=== PATIENT | female | born 2000 | race Caucasian/White ===

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

== ENCOUNTER 2025-01-27 23:13 | Emergency (ER) | payer OTHER ==
--- OUTSIDE RECORDS SUMMARY | 2025-01-27 23:17 | XMS REPORT | Continuity of Care Document ---
Author Name Unknown Address [address] [facility] [place] [address] [facility] Address [address] [facility] [place] [address] Care Team Providers Care Senior Construction Manager Name Role Phone SOFIA JUSTIN Primary Care Physician Unavail able Beth Whaley Attending Clinician UnavailRONNIE Webb Attending Clinician Unavailable LISTER_MELISSA Attending Clinician Unavailable Ruth Pearson Attending Clinician Unavailable Lab, Adc Fam Pob I Attending Clinician UnavailCelia Guevara MD Attending Clinician CELIA SEAMAN Attending Clinician Unavailable [facility] Admitting Clinician Unavaila ble MARK_CLIFTON Admitting Clinician Unavailable Payers Payer Name Policy Type Policy Number Effective Date Expirati on Date Source [employer] PPO [id number] 2023 00:00:00 Allergies, Adverse Reactions, Alerts Allergy Name Allergy Type Status Severity Reaction(s) Onset Date Inactive Date Treating Clinician Comments Source No Known Allergie s DA Active U 05-09 00:00: 00 [facility] NO KNOWN ALLERGIE S Drug Class Active [facility] Social History Social Habit Start Date Stop Date Quantity Comments Source Exposure to SARS-CoV-2 (event) Yes [facility] Sex Assigned At 2000 00:00:00 2000 00:00:00 [facility] Smoking Status Start Date Stop Date Source Unknown if [facility] Encounters Start Date/Time End Date/Time Encounter Type Admission Type Attending Clinicians Care Facility Care Department Encounter ID Source 2025-03-17 11:30:00 2025-03-17 11:30:00 Outpatient Beth Whaley [facility] [id number] [facility] 2024-06-12 09:00:00 2024-06-12 09:00:00 Outpatient RONNIE CHRISTOPHER [facility] [id number] [facility] 2022-05-23 00:00:00 2022-05-23 00:00:00 Outpatient [facility] [id number] [place] [facility] 2022-05-09 12:03:00 2022-05-09 12:54:00 Emergency EM Madain, Safi [facility] AERS [id number] [facility] 2022-05-09 12:03:00 2022-05-09 12:03:00 Emergency EM Madain, Safi [facility] [id number] [facility] 2021-05-14 15:49:20 2021-05-14 16:09:20 Laboratory Only Lab, Adc [facility] Malcom Celia Flores [facility] [id number] [facility] 2021-05-14 15:40:00 2021-05-14 15:40:00 Outpatient CELIA PRITCHETT [facility] [id number] [facility] Results Test Description Test Time Test Comments Results Result Co mments Source Urine Test Result: NEGATIVEAre internal controls (presence of a control line & clear background) OK? YesLot # of HCG Test Kit: [id number] Date of Kit: 07/27/23Test Performed by: CSMITHTest Perfomed on: 05/09/22 Notes Date/Time Note Provider Source 2022-05-09 12:16:00 [facility] ([facility] EMERGENCY PROVIDER REPORT REPORT#:[id number] REPORT STATUS: Signed DATE:05/09/22 TIME: 1216 PATIENT: OMARI ALVAREZ UNIT #: [id number] ROOM/BED: AGE: 21 SEX: F PCP PHYS: URGENT CARE CENTER SERVICE AUTHOR: Ruth Pearson DO * ALL edits or amendments must be made on the electronic/computer document * HPI-General Illness Free Text HPI Notes Free Text HPI Notes Patient is a 21-year-old female, she has a past medical history of bipolar disorder with greater manic features, history of cocaine dependence though patient states that she has not done any cocaine recently, she presents emergency department with dizziness that occurred while she was at work today. 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 She did not pass out. No chest pain, shortness of breath, no abdominal pain, no vomiting, no diarrhea, no fever. No other complaints. Patient states that she feels much better now that she is out of the heat. Patient states that she did start a medication called Vraylar approximately 1 week ago, it is an antipsychotic, she takes it for her bipolar disorder. She states that dizziness is a potential side effect of Vraylar. She did call her psychiatrist and is waiting for a call back. General Initial Greet Date/Time 05/09/22 1203 Presentation Chief Complaint __ Review of Systems ROS Statements All systems rev neg except as marked. Review of Systems Cardiovascular Denies: Chest pain, Dyspnea on exertion, Edema, Orthopnea, Palpitations, Syncope. GI Denies: Abdominal pain. Female Denies: Pelvic pain, Vaginal bleeding - abnl, Vaginal discharge. Neurologic Denies: Change LOC, Confusion, Focal weakness, Problem walking, Seizure. Past Medical History - Adult Stated Complaint DIZZINESS Allergies Coded Allergies: No Known Allergies (05/09/22) Review of Nursing Notes Rev avail, and agree Additional Medical History Bipolar disorder Smoking status for patients 13 years old or older: Current some day smoker Physical Exam Vital Signs Vital Signs First Documented: Result Date Time Pulse Ox 100 05/09 1205 B/P 130/80 05/09 1205 B/P Mean 96 05/09 1205 O2 Delivery Room air 05/09 1205 Temp 36.4 05/09 1205 Pulse 85 05/09 1205 Resp 16 05/09 1205 Last Documented: Result Date Time Pulse Ox 100 05/09 1205 B/P 130/80 05/09 1205 B/P Mean 96 05/09 1205 O2 Delivery Room air 05/09 1205 Temp 36.4 05/09 1205 Pulse 85 05/09 1205 Resp 16 05/09 1205 Review of Vital Signs Reviewed Free Text PE Notes Free Text PE Notes General: Well-nourished, well-developed, cooperative Eyes: Normal conjunctiva, PERRL Ear/nose/throat: Atraumatic, airway patent Respiratory: No respiratory distress, clear auscultation bilaterally Cardiovascular: Heart rate normal, regular rate and rhythm, patient is not orthostatic. I personally took the patient's supine/sitting/standing vital signs. Musculoskeletal: Head: Atraumatic, normocephalic Neck: Atraumatic, supple Upper extremities: Atraumatic, no swelling Lower extremities: Atraumatic, no swelling Skin: Normal color, no rash, warm, dry, intact Neurologic: Oriented x3, awake, alert, speech normal, no obvious motor deficits, memory normal, no dysmetria, no dysdiadochokinesia, patient ambulates independently with a steady gait Psychiatric: Affect normal, mood normal Interpretation Diagnostics Lab Results Interpretation Lab Statement Laboratory studies reviewed and considered in the medical decision-making. Urine hCG is negative ECG #1 Interpretation Text/Dict Note Time performed: 1219 Time read: 1219 Heart Rate: 80 Normal sinus rhythm with sinus arrhythmia, normal QRS, normal axis, normal intervals, no STEMI, no acute ischemic changes Patient Discharge Departure Vital Signs/Condition Vital Signs First Documented: Result Date Time Pulse Ox 100 05/09 1205 B/P 130/80 05/09 1205 B/P Mean 96 05/09 1205 O2 Delivery Room air 05/09 1205 Temp 36.4 05/09 1205 Pulse 85 05/09 1205 Resp 16 05/09 1205 Last Documented: Result Date Time Pulse Ox 100 05/09 1205 B/P 130/80 05/09 1205 B/P Mean 96 05/09 1205 O2 Delivery Room air 05/09 1205 Temp 36.4 05/09 1205 Pulse 85 05/09 1205 Resp 16 05/09 1205 All vital signs available at the time of this entry have been reviewed. Condition Stable Clinical Impression Clinical Impression Primary Impression: Heat exhaustion Secondary Impressions: Dizziness Disposition Decision Discharge )( Discharged to Home Yes )( Time 1239 )( Date 05/09/22 Discharge/Care Plan Counseled Regarding Diagnosis, Need for follow-up, When to return to ED Patient Instructions ED Heat Exhaustion Additional Instructions Please follow-up with your psychiatrist regarding Vraylar at 1239 RPT #:[id number] END OF REPORT [facility]
[2025-01-28 00:28] LABS: Specific Gravity 1.016 (1.005-1.030)
[2025-01-28 00:37] LABS: Specific Gravity 1.016 (1.005-1.030); Sqamous Epithelial <5 /HPF (None Seen); Urine Bacteria <20 /HPF (<20); Urine Bilirubin NEGATIVE (Negative); Urine Blood 1+ (Negative); Urine Clarity Extremely Turbid (Clear); Urine Color Dark-Brown (Yellow); Urine Culture Reflex Order REFLEXED; Urine Glucose NEGATIVE (Negative); Urine Ketones NEGATIVE (Negative); Urine Microscopic Reflex YN ORDER UMIC; Urine Mucus Slight /HPF (None Seen); Urine Nitrite 1+ (Negative); Urine Protein TRACE (Negative); Urine Urobilinogen 1+ (Normal); Urine WBC 20-50 /HPF (<5); Urine pH 5.5 (5.0-7.0)
--- NOTE | 2025-01-28 00:48 | ER ---
Nurse's Notes [facility] Name: Ludwig Ovalle Age: 24 yrs Sex: Female : 2000 Arrival Date: 01/27/2025 Time: 23:13 Bed 20 Private MD: Diagnosis: UTI/ Urinary tract infection, site not specified;Abrasion of vagina and vulva Presentation: 01/27 23:49 Chief complaint: Patient states: vaginal discomfort pain, and bleeding. Hurts when I vc1 try to wipe after peeing. Coronavirus screen: Client denies travel out of the [place] in the last 14 days. At this time, the client does not indicate any symptoms associated with coronavirus-19. Ebola Screen: Patient negative for fever greater than or equal to 101.5 degrees Fahrenheit, and additional compatible Ebola Virus Disease symptoms Patient denies exposure to infectious person. Patient denies travel to an Ebola-affected area in the 21 days before illness onset. No symptoms or risks identified at this time. Initial Sepsis Screen: Does the patient meet any 2 criteria? No. Patient's initial sepsis screen is negative. Does the patient have a suspected source of infection? No. Patient's initial sepsis screen is negative. Risk Assessment: Do you want to hurt yourself or someone else? Patient reports no desire to harm self or others. Note started 1.5 weeks ago. Onset of symptoms is unknown. 23:49 Method Of Arrival: Ambulatory vc1 23:49 Acuity: HALLIE 4 vc1 23:54 Note just treated for Chylmydia. vc1 Triage Assessment: 23:55 General: Appears in no apparent distress. uncomfortable, obese, well groomed, well vc1 developed, Behavior is calm, cooperative, appropriate for age. Pain: Complains of pain in meatus Pain does not radiate. EENT: No deficits noted. No signs and/or symptoms were reported regarding the EENT system. Neuro: Level of Consciousness is awake, alert, obeys commands, Oriented to person, place, time, situation, Appropriate for age. Cardiovascular: Capillary refill < 3 seconds Patient's skin is warm and dry. Respiratory: Airway is patent Respiratory effort is even, unlabored, Respiratory pattern is regular, symmetrical. GI: No deficits noted. No signs and/or symptoms were reported involving the gastrointestinal system. : Reports burning with urination, vaginal bleeding that is bright red. Derm: Skin is intact, is healthy with good turgor, Skin is dry, Skin is normal, Skin temperature is warm. Musculoskeletal: Circulation, motion, and sensation intact. Range of motion: intact in all extremities. MANAGER FORENSIC: 23:53 LMP N/A - control method, Not vc1 Historical: - Allergies: 23:50 No Known Allergies; vc1 - Home Meds: 23:50 metformin 500 mg oral tablet 2 times per day [Active]; vc1 - PMHx: 23:50 high heart rate; vc1 - PSHx: 23:50 None; vc1 - Immunization history:: Client reports receiving the 2nd dose of the Covid vaccine, Flu vaccine is not up to date. - Infectious Disease History:: Denies. - Social history:: Smoking status: Reported history of juuling and/or vaping. Screenin:53 [facility] ED Fall Risk Assessment (Adult) History of falling in the last 3 months, vc1 including since admission No falls in past 3 months (0 pts) Confusion or Disorientation No (0 pts) Intoxicated or Sedated No (0 pts) Impaired Gait No (0 pts) Mobility Assist Device Used No (0 pt) Altered Elimination No (0 pt) Score/Fall Risk Level 0 - 2 = Low Risk Oriented to surroundings, Maintained a safe environment, Educated pt \T\ family on fall prevention, incl call for assistance when getting out of bed. Abuse screen: Denies threats or abuse. Nutritional screening: No deficits noted. Tuberculosis screening: No symptoms or risk factors identified. Assessment: 01/28 00:12 General: Appears in no apparent distress. uncomfortable, Behavior is calm, cooperative, dd2 appropriate for age. Pain: Complains of pain in pelvis and meatus and groin Pain does not radiate. Pain currently is 4 out of 10 on a pain scale. Quality of pain is described as burning. Neuro: No deficits noted. Lozano Agitation-Sedation Scale (RASS): 0 - Alert and Calm Level of Consciousness is awake, alert, obeys commands, Oriented to person, place, time, situation, Appropriate for age. Cardiovascular: No deficits noted. Respiratory: No deficits noted. Airway is patent Respiratory effort is even, unlabored, Respiratory pattern is regular, symmetrical. GI: No deficits noted. No signs and/or symptoms were reported involving the gastrointestinal system. : Reports burning with urination, discharge, bloody, pain with urination. EENT: No deficits noted. No signs and/or symptoms were reported regarding the EENT system. Derm: No deficits noted. No signs and/or symptoms reported regarding the dermatologic system. Musculoskeletal: No deficits noted. No signs and/or symptoms reported regarding the musculoskeletal system. Circulation, motion, and sensation intact. Range of motion: intact in all extremities. Vital Signs: 01/27 23:49 Weight 91.63 kg; Height 5 ft. 2 in. ; Pain 4/10; vc1 23:54 BP 131 / 88; Pulse 87; Resp 16; Temp 97.1; Pulse Ox 98% ; vc1 01/28 01:04 BP 124 / 82; Pulse 81; Resp 16; Temp 97.8; Pulse Ox 99% on R/A; dd2 01/27 23:49 Body Mass Index 36.95 (91.63 kg, 157.48 cm) vc1 01/27 23:49 Pain Scale: Adult vc1 [place] Coma Score: 00:12 Eye Response: spontaneous(4). Motor Response: obeys commands(6). Verbal Response: dd2 oriented(5). Total: 15. ED Course: 01/27 23:17 Patient arrived in ED. im 23:20 Michelle Raines FNP-C is PHCP. kb 23:20 Twin Valle MD is Attending Physician. kb 23:50 Triage completed. vc1 23:53 Arm band placed on right wrist. vc1 01/28 00:12 Patient has correct armband on for positive identification. Bed in low position. Call dd2 light in reach. Side rails up X2. Client placed on continuous cardiac and pulse oximetry monitoring. NIBP monitoring applied. Door closed. Noise minimized. Warm blanket given. Pillow given. Verbal reassurance given. 00:12 No provider procedures requiring assistance completed. Patient did not have IV access dd2 during this emergency room visit. 00:54 OJ BUSCH, RN is Primary Nurse. dd2 01:04 Provided Education on: D/C EDUCATION. dd2 Administered Medications: 01:04 Drug: Macrobid PO 100 mg PO once; administer with food Route: PO; dd2 01:06 Follow up: Response: Medication administered at discharge. dd2 Medication: 00:12 VIS not applicable for this client. dd2 Outcome: 00:47 Discharge ordered by . chano 01:04 Discharged to home ambulatory, dd2 01:04 Condition: stable 01:04 Discharge instructions given to patient, Instructed on discharge instructions, follow up and referral plans. medication usage, Demonstrated understanding of instructions, follow-up care, medications, Prescriptions given X 1, 01:06 Patient left the ED. dd2 Addendum: 01/31/2025 18:39 Addendum: Culture Results: Positive urine culture. No further action required. Bacteria i w sensitive to prescribed antibiotic. Signatures: Michelle Raines, FACILITIES MAINTENANCE WORKER-C FACILITIES MAINTENANCE WORKER-Ckb Shelly Estrella, RN RN iw Amber Avila RN RN vc1 Jazmin Goldsmith DIANA, RN RN dd2
--- NOTE | 2025-01-28 00:48 | EDPHYS ---
Physician Documentation [facility] Name: Ludwig Ovalle Age: 24 yrs Sex: Female : 2000 Arrival Date: 01/27/2025 Time: 23:13 Bed 20 Private MD: ED Physician Twin Valle HPI: 01/28 00:45 This 24 yrs old Female presents to ER via Ambulatory with complaints of Vaginal kb Bleeding, Vaginal Discharge, Vaginal Pain, Urinary Problem. 00:45 Patient is a 24-year-old female who presents for pain to vaginal area and bleeding when kb she wipes that started a week and a half ago. States she was diagnosed with chlamydia and completed antibiotics for that just prior to symptom onset. Denies fever. States blood is not coming from vagina but around vaginal area. Denies vaginal discharge. Reports burning with urination.. NPS: 01/27 23:53 LMP N/A - control method, Not vc1 Historical: - Allergies: 23:50 No Known Allergies; vc1 - Home Meds: 23:50 metformin 500 mg oral tablet 2 times per day [Active]; vc1 - PMHx: 23:50 high heart rate; vc1 - PSHx: 23:50 None; vc1 - Immunization history:: Client reports receiving the 2nd dose of the Covid vaccine, Flu vaccine is not up to date. - Infectious Disease History:: Denies. - Social history:: Smoking status: Reported history of juuling and/or vaping. ROS: 01/28 00:45 Constitutional: As per HPI kb Exam: 00:45 Constitutional: This is a well developed, well nourished patient who is awake, alert, kb and in no acute distress. Head/Face: Normocephalic, atraumatic. ENT: Moist Mucous membranes Cardiovascular: Regular rate Respiratory: Respirations even and unlabored. No increased work of breathing. Talking in full sentences Abdomen/GI: Soft, non-tender. No distention Skin: Warm, dry with normal turgor. Normal color. MS/ Extremity: Pulses equal, no cyanosis. Neurovascular intact. Full, normal range of motion. Neuro: Awake and alert, GCS 15, oriented to person, place, time, and situation. 00:45 : Pelvic Exam: External exam: excoriation noted, Vital Signs: 01/27 23:49 Weight 91.63 kg; Height 5 ft. 2 in. ; Pain 4/10; vc1 23:54 BP 131 / 88; Pulse 87; Resp 16; Temp 97.1; Pulse Ox 98% ; vc1 01/28 01:04 BP 124 / 82; Pulse 81; Resp 16; Temp 97.8; Pulse Ox 99% on R/A; dd2 01/27 23:49 Body Mass Index 36.95 (91.63 kg, 157.48 cm) vc1 01/27 23:49 Pain Scale: Adult vc1 [place] Coma Score: 00:12 Eye Response: spontaneous(4). Motor Response: obeys commands(6). Verbal Response: dd2 oriented(5). Total: 15. MDM: 01/27 23:20 Medical Screening Exam initiated kb 01/28 00:45 Differential diagnosis: UTI, vaginosis. Data reviewed: vital signs, nurses notes. kb Counseling: I had a detailed discussion with the patient and/or guardian regarding the historical points, exam findings, and any diagnostic results supporting the discharge/admit diagnosis, lab results, the need for outpatient follow up, an OB/Gyne specialist, to return to the emergency department if symptoms worsen or persist or if there are any questions or concerns that arise at home. 01/28 00:06 Order name: Urinalysis w/ reflexes; Complete Time: 00:40 vc1 01/28 00:07 Order name: Test, Urine; Complete Time: 00:29 kb 01/28 00:42 Order name: Urine Culture EDMS Administered Medications: 01:04 Drug: Macrobid PO 100 mg PO once; administer with food Route: PO; dd2 01:06 Follow up: Response: Medication administered at discharge. dd2 Disposition: 01:33 Co-signature as Attending Physician, Twin Valle MD I reviewed the patient's care rt provided by the Advanced Practice Provider and agree with the diagnosis and treatment plan. Disposition Summary: 01/28/25 00:47 Discharge Ordered Notes: Location: Home kb Condition: Stable kb Diagnosis - UTI/ Urinary tract infection, site not specified kb - Abrasion of vagina and vulva kb Followup: kb - With: Emergency Department - When: As needed - Reason: Worsening of condition Followup: kb - With: Private Physician - When: 2 - 3 days - Reason: Recheck today's complaints, Continuance of care, Re-evaluation by your physician Discharge Instructions: - Discharge Summary Sheet kb - Urinary Tract Infection, Adult, [id number] kb Forms: - Medication Reconciliation Form kb - Antibiotic Education kb - Prescription Opioid Use kb - Patient Portal Instructions kb - Leadership Thank You Letter kb Prescriptions: - Macrobid 100 mg Oral Capsule - take 1 capsule ORAL route every 12 hours for 10 days; 20 capsule; Refills: 0, kb Product Selection Permitted Signatures: Dispatcher [employer] EDMS Michelle Raines, MIKAYLA-C MIKAYLA-Amber Ambrose RN RN vc1 Twin Valle MD MD rt OJ BUSCH RN RN dd2
[2025-01-28] MEDS ORDERED: NITROFURAN MACRO 100 MG CAP PO ONE (00:58)
[2025-01-28 01:26] VITALS: BP 124/82; TEMP 97.8; O2SAT 99
== END 2025-01-28 01:06 | disposition home or self-care (01) ==
LOC: ER 23:13
DX: N39.0 Urinary tract infection, site not specified (principal); S30.814A Abrasion of vagina and vulva, initial encounter
CPT/HCPCS: 81001; 81025; 87077; 87086; 87088; 87186; 99284